=== PATIENT | female | born 1985 | race Caucasian/White ===

== ENCOUNTER 2023-11-16 17:46 | Emergency (ER) | payer MEDICAID ==
[~2023-11-16] VITALS: Ht 172.7 cm; Wt 150.0 kg
[2023-11-16 18:03] VITALS: BP 142/66; PULSE 85; RESP 16; TEMP 98; O2SAT 100
== END 2023-11-17 01:18 | disposition left against medical advice (07) ==
LOC: ER 17:46
DX: R68.89 Other general symptoms and signs (principal); Z53.21 Procedure and treatment not carried out due to patient leaving prior to being seen by health care provider
CPT/HCPCS: 99281